=== PATIENT | male | born 1995 | race Caucasian/White ===

== ENCOUNTER 2021-04-06 08:34 | Emergency (ER) | payer OTHER ==
[2021-04-06 08:38] VITALS: TEMP 99.2
[2021-04-06] MEDS ORDERED: DIPH,PERTUS(ACELL)TETVAC-LF 0.5 ML VIAL IM ONE (08:40)
[2021-04-06] MEDS ORDERED: LIDOCAINE/EPINEPHR/TETRACAINE 5 ML BOTTLE TOPICAL ONE (08:44)
[2021-04-06] MEDS ORDERED: LIDOCAINE 1% INJ 10MG/ML (20 ML MDV) SQ ONE (08:44)
[2021-04-06] MEDS ORDERED: ACETAMINOPHEN TAB 325 MG TAB PO STA (08:45)
--- NOTE | 2021-04-06 08:54 | ED ---
General Adult HPI - General Chief complaint: Wound/Laceration Stated complaint: [facility]-lt hand lac Time Seen by Provider: 04/06/21 08:40 Source: patient, RN notes reviewed Mode of arrival: ambulatory Limitations: no limitations - History of Present Illness Initial comments: Well-appearing 26-year-old male presents to the emergency room with complaints of lacerating the top of his left hand on a saw guard at work while cutting a piece of sheet metal. He has a 2 cm laceration to the dorsum surface of the left hand and a 2 cm abrasion to palmar surface of the left hand. He denies any other injuries. No medical history and states his tetanus shot is not up-to-date. -: hour(s) Location: left, upper extremity (dorsum hand) Severity scale (1-10): 4 Quality: other (stings) Consistency: constant Improves with: none Worsens with: none Associated Symptoms: denies other symptoms Treatments Prior to Arrival: other (dressing) - Related Data Home Medications Medication Instructions Recorded Confirmed No Known Home Medications 04/06/21 04/06/21 Allergies Allergy/AdvReac Type Severity Reaction Status Date / Time shrimp Allergy Anaphylaxis Verified 04/06/21 09:25 Review of Systems ROS Statement: Those systems with pertinent positive or pertinent negative responses have been documented in the HPI. ROS Other: All systems not noted in ROS Statement are negative. Past Medical History Past Medical History: No Reported History History of Any Multi-Drug Resistant Organisms: None Reported Past Surgical History: No Surgical Hx Reported Past Psychological History: No Psychological Hx Reported Smoking Status: Never smoker Past Alcohol Use History: None Reported Past Drug Use History: None Reported General Exam Limitations: no limitations General appearance: alert, in no apparent distress Respiratory exam: Present: normal lung sounds bilaterally. Absent: respiratory distress Cardiovascular Exam: Present: regular rate, normal heart sounds Left Hand Wrist exam: Present: tenderness, abrasion (2cm palmar surface distal to wrist crease), laceration (2cm dorsal surface 3rd metacarpal) Neuro motor exam: Present: wrist extension intact, thumb opposition intact, fingers 2-5 abduction intact Neurosensory exam: Present: radial nerve intact, ulnar nerve intact, median nerve intact Vascular: Present: normal capillary refill, radial pulse Neurological exam: Present: alert, oriented X3, normal gait Psychiatric exam: Present: normal affect, normal mood Skin exam: Present: warm, dry, normal color. Absent: cyanosis, diaphoretic Course Vital Signs 04/06/21 04/06/21 08:36 10:16 Temperature 99.2 F Pulse Rate 100 87 Respiratory 18 16 Rate Blood Pressure 155/91 134/78 O2 Sat by Pulse 99 98 Oximetry Procedures - Laceration Laceration #1 Consent Obtained: verbal consent Indication: laceration Site: hand Description: linear Depth: simple, single layer Anesthesia Technique: local infiltration (plus LET) Pre-repair: wound explored, irrigated extensively Type of Sutures: nylon Size of Sutures: 5-0 Number of Sutures: 5 Technique: simple, interrupted Patient Tolerated Procedure: well, no complications Medical Decision Making - Medical Decision Making 26-year-old male presents after sustaining a 2 cm laceration to the left hand, dorsal surface while at work. He states that he cut it on a blade guard. X- rays negative. He has full range of motion. Wound was irrigated extensively and closed with five nylon sutures. Patient's tetanus shot was updated at this visit. He was instructed to have the sutures removed in 7-10 days, and keep clean and dry. Return to the emergency room with any new or concerning symptoms. Case was discussed with Dr. Fields. Disposition Clinical Impression: Laceration Disposition: HOME SELF-CARE Condition: Good Additional Instructions: Keep wound clean and dry. Sutures to be removed in 7-10 days. Bacitracin ointment to palm wound. Return to the emergency room if any new or worsening symptoms including signs of infection including fever, drainage or redness. Is patient prescribed a controlled substance at d/c from ED?: No Referrals: None,Stated [Primary Care Provider] - 1-2 days Time of Disposition: 09:44
--- NOTE | 2021-04-06 09:15 | XR ---
EXAMINATION TYPE: XR hand complete LT DATE OF EXAM: 04/06/2021 CLINICAL HISTORY: pain TECHNIQUE: Frontal, lateral and oblique images of the left hand are obtained. COMPARISON: None. FINDINGS: There is no acute fracture/dislocation evident. The joint spaces appear within normal limi ts. The overlying soft tissue appears unremarkable. IMPRESSION: There is no acute fracture or dislocation. ICD 10 NO FRACTURE, INITIAL EVALUATION
[2021-04-06] MEDS ORDERED: BACITRACIN OINT 1 EACH PACKET TOPICAL ONE (09:53)
[2021-04-06 10:17] VITALS: BP 134/78; PULSE 87; RESP 16
== END 2021-04-06 10:17 | disposition home or self-care (01) ==
LOC: EC 08:34
DX: S61.412A Laceration without foreign body of left hand, initial encounter (principal); Z23 Encounter for immunization; W26.8XXA Contact with other sharp object(s), not elsewhere classified, initial encounter; Y99.0 Civilian activity done for income or pay
CPT/HCPCS: 73130; 90715; 99283; 90471; 12002; J2001